=== PATIENT | male | born 1990 | race Caucasian/White ===

== ENCOUNTER 2021-01-15 02:58 | Emergency (ER) | payer OTHER, SELFPAY ==
--- NOTE | ~2021-01-15 | XR_ITS ---
EXAMINATION: XR KNEE, LEFT CLINICAL INFORMATION: Left knee pain. COMPARISON: None TECHNIQUE: Four views of the left knee. FINDINGS: No fracture or malalignment. No joint effusion. Joint spaces are well-preserved. Soft tissues are unremarkable. XR/XR knee LT 4V IMPRESSION: Normal radiographs of the left knee.
[2021-01-15 03:04] VITALS: BP 131/87; PULSE 82; RESP 20; O2SAT 98; BMI 33.9
[2021-01-15] MEDS: Acetaminophen 325 MG TABLET 650 MG PO (03:41)
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
[2021-01-15 04:00] VITALS: BP 140/71; PULSE 80; RESP 16; TEMP 36.9; O2SAT 100
== END 2021-01-15 04:51 | disposition home or self-care (01) ==
PROVIDERS: Emergency Provider Emergency Medicine; PCP Internal Medicine
DX: S80.02XA Contusion of left knee, initial encounter (principal); S80.212A Abrasion, left knee, initial encounter; M25.562 Pain in left knee; W01.0XXA Fall on same level from slipping, tripping and stumbling without subsequent striking against object, initial encounter; Y93.9 Activity, unspecified; Y92.9 Unspecified place or not applicable; Y99.0 Civilian activity done for income or pay
CPT/HCPCS: 73564; 99283; 99284

== ENCOUNTER 2022-09-05 16:15 | Emergency (ER) | payer OTHER, SELFPAY ==
--- NOTE | ~2022-09-05 | XR_ITS ---
EXAMINATION: XR HAND, LEFT CLINICAL INFORMATION: puncture wound to dorsum r/o foreign body COMPARISON: None TECHNIQUE: PA, lateral, and oblique views of the left hand. FINDINGS: The bones and soft tissues are normal. No fracture. Alignment is anatomic. Joint spaces are maintained. No erosions or soft tissue calcifications. No radiodense foreign bodies. XR/XR hand LT 2V IMPRESSION: Normal left hand. No radiodense foreign bodies.
[2022-09-05 16:21] VITALS: BP 141/101; PULSE 111; RESP 18; TEMP 36.9; O2SAT 97; BMI 36.5
--- NOTE | 2022-09-05 16:25 | ECG_ITS ---
Test Reason : TACHY Blood Pressure : / mmHG Vent. Rate : 106 BPM Atrial Rate : 106 BPM P-R Int : 158 ms QRS Dur : 094 ms QT Int : 332 ms P-R-T Axes : 032 014 010 degrees QTc Int : 441 ms Sinus tachycardia RSR' or QR pattern in V1 suggests right ventricular conduction delay Otherwise normal ECG When compared with ECG of 05-SEP-2010 22:45, Vent. rate has increased BY 41 BPM Referred By: Renée Linares Electronically Signed By:JUVE FERNANDES MD
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
[2022-09-05] MEDS: cephALEXin 500 MG CAPSULE PO (16:48)
[2022-09-05] MEDS: Diphth,Pertus(ACell),Tet Adult 0.5 ML SYRINGE IM (16:48)
[2022-09-05 18:00] VITALS: BP 150/95; PULSE 103; RESP 16; TEMP 37; O2SAT 97
== END 2022-09-05 19:29 | disposition home or self-care (01) ==
PROVIDERS: Emergency Provider Emergency Medicine; PCP Internal Medicine
DX: S61.432A Puncture wound without foreign body of left hand, initial encounter (principal); Y35.831A Legal intervention involving a conducted energy device, law enforcement official injured, initial encounter; Y93.02 Activity, running; Y92.414 Local residential or business street as the place of occurrence of the external cause; Y99.0 Civilian activity done for income or pay
CPT/HCPCS: 73120; 90471; 90715; 93005; 99284

== ENCOUNTER → 2022-09-06 12:55 | Outpatient (BNVA) | payer OTHER, SELFPAY | PROVIDERS: PCP Internal Medicine; Visit Provider Physician Assistant | DX: S61.432A Puncture wound without foreign body of left hand, initial encounter (principal); W20.8XXA Other cause of strike by thrown, projected or falling object, initial encounter | CPT/HCPCS: 99204 ==

== ENCOUNTER → 2022-09-08 13:18 | Outpatient (BNVA) | payer OTHER, SELFPAY | PROVIDERS: PCP Internal Medicine; Visit Provider Physician Assistant | DX: S61.432A Puncture wound without foreign body of left hand, initial encounter (principal); W20.8XXA Other cause of strike by thrown, projected or falling object, initial encounter | CPT/HCPCS: 99214 ==

== ENCOUNTER → 2022-09-15 09:33 | Outpatient (BNVA) | payer OTHER, SELFPAY | PROVIDERS: PCP Internal Medicine; Visit Provider Physician Assistant | DX: S61.432A Puncture wound without foreign body of left hand, initial encounter (principal); W20.8XXA Other cause of strike by thrown, projected or falling object, initial encounter | CPT/HCPCS: 99213 ==

== ENCOUNTER 2022-09-25 11:00 | Outpatient (RCR) | payer OTHER, SELFPAY ==
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
--- NOTE | 2022-09-25 11:48 | MHC.OT.DC ---
[address] [phone] F: [phone] Occupational Therapy Discharge Note Provider: Ritika Monzon Diagnosis: Dorsal edema left hand , (tazed in hand) Date of Surgery: Date of Evaluation: 09/14/22 Date of Discharge: 09/25/22 Treatments to Date: 4 Cancellations to Date: 0 No Shows to Date: 0 Discharge Status: Achieved Goals Improved Function Independent with HEP Discharge Summary: Goals met. Pt reports pain and strength significantly improved, WFL. Pain 2/10 . 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 I anticipate pt to RTW and gym workout at work with little difficulty due to discomfort. Electronically Signed By: Lisa Sandoval OT CHT CLT Reviewed/agree with student documentation: Therapist: Please Sign and return to therapist, thank you for your referral.
== END 2022-09-25 11:48 | disposition home or self-care (01) ==
LOC: HO.OT 11:00
PROVIDERS: PCP Internal Medicine; Visit Provider Physician Assistant
DX: R60.0 Localized edema (principal)
CPT/HCPCS: 97110; 97165

== ENCOUNTER → 2022-09-27 11:06 | Outpatient (BNVA) | payer OTHER, SELFPAY | PROVIDERS: PCP Internal Medicine; Visit Provider Physician Assistant | DX: S61.432A Puncture wound without foreign body of left hand, initial encounter (principal); W20.8XXA Other cause of strike by thrown, projected or falling object, initial encounter | CPT/HCPCS: 99213 ==

== ENCOUNTER → 2022-09-28 13:52 | Outpatient (BNVA) | payer OTHER, SELFPAY | PROVIDERS: PCP Internal Medicine; Visit Provider Orthopaedic Surgery | DX: R29.898 Other symptoms and signs involving the musculoskeletal system (principal) | CPT/HCPCS: 99202 ==

== ENCOUNTER → 2023-12-24 12:10 | Outpatient (BNVA) | payer OTHER, SELFPAY | PROVIDERS: PCP Internal Medicine; Visit Provider Physician Assistant Medical ==

== ENCOUNTER 2023-12-24 12:24 | Emergency (ER) | payer OTHER, SELFPAY ==
--- NOTE | ~2023-12-24 | CT_ITS ---
EXAMINATION: CT HEAD WITHOUT CONTRAST CLINICAL INFORMATION: Hypertension. COMPARISON: None. TECHNIQUE: Contiguous axial imaging was performed from the skullbase to vertex without intravenous administration of contrast. This CT examination was performed using dose optimization techniques as appropriate, variously including the following: *Automated exposure control *Adjustment of mA and/or kV according to patient size (this includes techniques or standardized protocols for targeted exams where dose is matched to indication/reason for exam; i.e. extremities or head) *Use of iterative reconstruction technique DLP: 684 mGy-cm. FINDINGS: There is no evidence of acute intracranial hemorrhage or territorial infarction. No abnormal mass effect or midline shift is seen. Miller to white matter differentiation is well preserved. No extra-axial fluid collections are identified. The ventricles are normal in size. There is no abnormal attenuation within the brain parenchyma. The osseous structures and soft tissues are normal. The mastoid air cells and visualized portions of the paranasal sinuses are well aerated. CT/CT head/brain wo IV con IMPRESSION: No acute intracranial pathology.
--- NOTE | 2023-12-24 12:24 | ECG_ITS ---
Test Reason : HYPERTENSION Blood Pressure : / mmHG Vent. Rate : 109 BPM Atrial Rate : 109 BPM P-R Int : 138 ms QRS Dur : 084 ms QT Int : 336 ms P-R-T Axes : 030 007 002 degrees QTc Int : 452 ms Sinus tachycardia Possible Anterior infarct (cited on or before 24-DEC-2023) Abnormal ECG When compared with ECG of 05-SEP-2022 16:35, No significant change was found Referred By: Ann Walter Electronically Signed By:CARLYN ALCANTAR
--- NOTE | 2023-12-24 12:24 | ED_ITS ---
HPI - General Adult General Chief complaint: General Medical Stated complaint: High Blood Pressure Time Seen by Provider: 12/24/23 13:06 Source: patient Mode of arrival: ambulatory Limitations: no limitations History of Present Illness HPI narrative: Patient is a 33 year old assigned male at with no reported medical history presenting to the emergency department today with concerns of high blood pressure and intermittent headaches. Patient states that he has been having intermittent headaches lately and when having them, he checks his blood pressure and it is elevated. Patient states that while he was at work today he had another headache, checked his blood pressure, it was elevated, and he was told to come here. Patient denies any current headache, dizziness, lightheadedness, abdominal pain, nausea, vomiting, fever, chills, blurry vision, double vision, loss of vision, chest pain, difficulty breathing, shortness of breath, back pain, night sweats, pain with urination, increased urinary frequency, increased urinary urgency, blood in his urine or stool, syncope or a near syncopal episode, recent trauma or falls, bowel incontinence, bladder incontinence, bowel retention, bladder retention, or any other complaints at this time. Onset (ago): week(s) Location: head Radiation: non-radiation Severity: mild Severity scale (1-10): 3 Quality: aching Pain Consistency: intermittent Relieving factors: none Exacerbating factors: none Associated symptoms: headaches (intermittently) Related Data Previous Rx's Medication Instructions Recorded lisinopril 5 mg tablet 5 mg PO DAILY #90 tabs 12/24/23 Allergies Allergy/AdvReac Type Severity Reaction Status Date / Time amoxicillin [AMOXICILLIN] Allergy Unknown Verified 09/28/22 13:58 Penicillins [PENICILLINS] Allergy Unknown RASH Verified 09/28/22 13:58 sulfamethoxazole Allergy Unknown Verified 09/28/22 13:58 [From BACTRIM] trimethoprim [From BACTRIM] Allergy Unknown Verified 09/28/22 13:58 Review of Systems 2 Constitutional: Constitutional: Reports no additional constitutional complaints, Denies chills, Denies fever(s), Reports headache(s) (intermittently) and Denies night sweats Eyes: Eyes: Reports no additional eye complaints, Denies blurry vision, Denies change in vision, Denies diplopia, Denies eye discharge, Denies loss of vision and Denies eye pain ENT: Denies dizziness and Reports headache(s) (intermittently) Cardiovascular: Cardiovascular: Reports no additional cardiovascular complaints, Denies chest pain, Denies lightheadedness, Denies Loss of Consciousness and Denies dyspnea Respiratory: Respiratory: Reports no additional respiratory complaints and Denies dyspnea Gastrointestinal: Gastrointestinal: Reports no additional gastrointestinal complaints, Denies abdominal pain, Denies melena, Denies hematochezia, Denies change in bowel habits and Denies change in stool character Genitourinary: Genitourinary: Reports no additional male genitourinary complaints, Denies hematuria, Denies oliguria, Denies difficulty urinating, Denies dysuria, Denies urinary frequency, Denies urinary hesitancy, Denies urinary incontinence and Denies urinary urgency Musculoskeletal: Musculoskeletal: Reports no additional musculoskeletal complaints, Denies numbness and Denies tingling Neurologic: Denies dizziness, Reports headache(s) (intermittently), Denies loss of vision, Denies numbness and Denies tingling Psychiatric: Psychiatric: Reports no additional psychiatric complaints Endocrine: Endocrine: Reports no additional endocrine complaints Hematologic/Lymphatic: Hematologic/Lymphatic: Reports no additional hematologic/lymphatic complaints Allergic/Immunologic: Allergic/Immunologic: Reports no additional allergic/immunologic complaints PMFSH Past Medical History Attestation statement: The following information was validated with the patient. 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 Physical Exam ED Vital Signs: Vital Signs - 24 hr 12/24/23 12:26 Temperature 98.3 F Pulse Rate 101 H Respiratory Rate 16 Blood Pressure 163/120 H Pulse Oximetry 98 Oxygen Delivery Method Room Air BMI result Body Mass Index 42.7 Const General: cooperative, no acute distress, alert and awake Nutritional Appearance: well nourished Orientation/consciousness: patient oriented x3 Limitations: no limitations HENMT Head: Yes normal to inspection and Yes atraumatic Ears: hearing grossly normal bilaterally and external ears normal General nose exam: Normal external nose present, no nasal discharge noted and no epistaxis Face and sinus: Yes normal facial exam, No abrasion and No laceration Mouth: Normal oral and palatal mucosa present, no drooling and no muffled voice Eyes General: appearance normal, both eyes and all related structures Periorbital: periorbital findings normal Eyelids: Yes eyelids normal Conjunctivae: conjunctivae normal Pupils: Equal, round and reactive pupils present EOM: EOMs intact bilaterally Neck Neck: Yes normal visual inspection, Yes full ROM and Yes no lymphadenopathy Chest Chest palpation & inspection: normal inspection of the chest Resp Effort & Inspection: normal respiratory effort and able to speak in complete sentences GI Inspection: Yes normal to inspection Neuro General: patient oriented x3 and moves all extremities Cranial nerves: Yes Equal, round and reactive pupils present Cognition (Neuro): normal cognition Motor exam (neuro): 5/5 motor strength present throughout Sensory Exam: Normal double simultaneous stimulation for sensation Coordination: [id number] test normal Extrem General: Yes normal to inspection, Yes full ROM and Yes capillary refill normal Psych Appearance: grossly normal Mental Status: mental status grossly normal Affect: normal affect Attitude: cooperative Thought process: Normal thought process present Thought content: Normal thought content present Insight: Good insight present (Psych) Course Course Course Narrative: RME:33 yo male here w/ head/ neck pressure w/ elevated BP. went to [facility] where his BP was noted to be 164/114 and he was tachycardic- sent here. 182/132 at home yesterday. no hx of HTN, not currently on BP meds. denies chest pain, SOB, vision changes, dizziness. ekg, labs ordered. Full HPI, ROS and PE to be performed by the primary ED provider. Medical Decision Making Medical Decision Making MDM Narrative: Patient is a 33 year old assigned male at with no reported medical history presenting to the emergency department today with intermittent headaches and concern of high blood pressure. Patient's physical exam was unremarkable. Patient's blood work was unremarkable. Patient's EKG was unremarkable. Patient's head CT showed no acute process. I explained my physical exam findings as well as all test results to the patient. I answered all questions asked by the patient. Patient was hypertensive while in the department. Given his intermittent symptoms and elevated blood pressure - will consider starting an anti-hypertensive. The patient and I discussed in depth the benefits vs. risks of starting an anti-hypertensive medication from the emergency department. Together, we decided on lisinopril 5mg. I discussed the possible adverse effects with the patient who verbalized agreement and understanding. I stressed the importance of the patient taking his medication as prescribed. I stressed the importance of the patient following up with his primary care provider. I stressed the importance of the patient returning to the emergency department immediately if his symptoms were to worsen or if he were to develop any dizziness, shortness of breath, difficulty breathing, chest pain, blurry vision, loss of vision, nausea, vomiting, abdominal pain, fever, chills, back pain, or any other complaints. Patient verbalized agreement and understanding with this treatment plan and discharge. Differential Diagnosis Differential Diagnoses: The differential diagnosis associated with the presentation includes Hypertension Headache Cluster headache Tension headache Admission/Observation Consideration of admission/observation: Escalation of care including admission/observation considered Patient would have been admitted to the hospital had his work up had any findings where hospital admission was appropriate and his clinical presentation warranted hospital admission. Lab Data MDM Lab Attestation statement: I reviewed the patient's lab results. My interpretation of these studies and their corresponding values is that they are grossly normal. 12/24/23 12:46 12/24/23 12:46 Labs: Lab Results 12/24/23 Range/Units 12:46 WBC 6.8 (4.8-10.8) X10*3/uL RBC 5.79 (4.60-5.80) X10*6/uL Hgb 17.1 (14.0-18.0) g/dl Hct 47.4 (42.0-52.0) % MCV 81.9 (80.0-98.0) fL MCH 29.5 (27.0-33.0) pg MCHC 36.1 H (31.0-36.0) g/dl RDW 12.3 (11.0-16.0) % Plt Count 225 (160-400) X10*3/uL MPV 11.3 (9.4-12.4) fL Immature Gran % (Auto) 0.4 (0.0-0.4) % Neut % (Auto) 72.4 (45-73) % Lymph % (Auto) 18.5 L (20-40) % Stone % (Auto) 6.2 (2-11) % Eos % (Auto) 1.9 (0-4) % Baso % (Auto) 0.6 (0-2) % Lymph # (Auto) 1.3 (1.2-4.9) X10*3/uL Stone # (Auto) 0.4 (0.1-1.2) X10*3/uL Eos # (Auto) 0.1 (0.0-0.4) X10*3/uL Baso # (Auto) 0.0 (0.0-0.2) X10*3/uL Abs Immat Gran (auto) 0.03 (0.00-0.03) X10*3/uL Absolute Neuts (auto) 4.9 (2.0-8.3) x10*3/uL Absolute Nucleated RBC 0.000 (0.0-0.012) X10*3/uL Nucleated RBC % (auto) 0.0 (0.0-0.2) /100WBC PT 11.5 (11.1-13.3) SEC INR 0.9 (0.9-1.1) Sodium 141 (135-145) mmol/L Potassium 4.1 (3.3-5.1) mmol/L Chloride 105 (96-108) mmol/L Carbon Dioxide 27 (22-29) mmol/L Anion Gap 13 (12-20) BUN 15 (9-16) mg/dL Creatinine 0.94 (0.5-1.4) mg/dL Estim Creat Clear Calc 165.4 Estimated GFR > 60 Random Glucose 102 (60-115) mg/dL Calcium 9.8 (8.4-10.2) mg/dL Magnesium 2.1 (1.6-2.6) mg/dL Troponin I High Sens < 2.7 (<3.5-35.0) ng/L Independent Interpretation I performed an independent interpretation of an: EKG and CT Scan Interpretation: My interpretation is in agreement with the radiologist's impression of this imaging study. - EXAMINATION: CT HEAD WITHOUT CONTRAST CLINICAL INFORMATION: Hypertension. COMPARISON: None. TECHNIQUE: Contiguous axial imaging was performed from the skullbase to vertex without intravenous administration of contrast. This CT examination was performed using dose optimization techniques as appropriate, variously including the following: *Automated exposure control *Adjustment of mA and/or kV according to patient size (this includes techniques or standardized protocols for targeted exams where dose is matched to indication/reason for exam; i.e. extremities or head) *Use of iterative reconstruction technique DLP: 684 mGy-cm. FINDINGS: There is no evidence of acute intracranial hemorrhage or territorial infarction. No abnormal mass effect or midline shift is seen. Miller to white matter differentiation is well preserved. No extra-axial fluid collections are identified. The ventricles are normal in size. There is no abnormal attenuation within the brain parenchyma. The osseous structures and soft tissues are normal. The mastoid air cells and visualized portions of the paranasal sinuses are well aerated. CT/CT head/brain wo IV con IMPRESSION: No acute intracranial pathology. Dictated By: MEERA WELLS MD Signed By: Electronically signed by MEERA WELLS MD 12/24/23 1448 - Vent. Rate: 109 BPM Atrial Rate: 109 BPM P-R Int: 138 ms QRS Dur: 084 ms QT Int: 336 ms P-R-T Axes: 030 007 002 degrees QTc Int: 452 ms Sinus tachycardia Possible Anterior infarct (cited on or before 24-DEC-2023) Abnormal ECG When compared with ECG of 05-SEP-2022 16:35, No significant change was found Electronically Signed By:RODDY ALCANTAR Dictated By: Roddy Alcantar MD Signed By: Electronically signed by Roddy Alcantar MD 12/24/23 0399 Radiology Impression Discussion of test interpretation with radiology: I have reviewed the radiologist's reading. Prescription Management I considered prescription management with: Other (patient started on Lisinopril.) Discharge Plan Discharge Clinical Impression: Hypertension Patient Disposition: Home, Self-Care Instructions: Hypertension (ED) Additional Instructions: I am starting you on Lisinopril. Things to look out for with this medication are a dry cough which is a normal side effect and facial/lip/mouth swelling which is an ABNORMAL side effect and should cause you to immediately stop the medication and come to the ER. Follow up with your primary care provider. Return to the emergency department immediately if your symptoms worsen or if you develop any dizziness, shortness of breath, difficulty breathing, chest pain, blurry vision, loss of vision, nausea, vomiting, abdominal pain, fever, chills, back pain, or any other complaints. Prescriptions: New lisinopril 5 mg tablet 5 mg PO DAILY Qty: 90 0RF Ref[place]: [facility] [place] [facility] [place] (Call to establish and follow up with a primary care provider. If you already have a primary care provider, please follow up with them.) [facility] [place] [facility]] (Call to establish and follow up with a primary care provider. If you already have a primary care provider, please follow up with them.) [facility] [place] [facility]] (Call to establish and follow up with a primary care provider. If you already have a primary care provider, please follow up with them.) [facility] [Provider Group] (Call to establish and follow up with [facility] given you came in while on shift. ) Justo Quintana MD [Primary Care Provider] - Stand Alone Forms: Work/School Release Interventions: ED Discharge Assessment Last Done: 12/24/23 15:35 Discharge Date/Time: 12/24/23 15:36 Print Language: Romanian
[2023-12-24 12:26] VITALS: BP 163/120; PULSE 101; RESP 16; TEMP 36.8; O2SAT 98; BMI 42.7
[2023-12-24 12:57] LABS: MANUAL DIFF FLAG NO
[2023-12-24 12:59] LABS: Basophils Percent Auto 0.6 % (0-2); Eosinophils Absolute Auto 0.1 X10*3/uL (0.0-0.4); Eosinophils Percent Auto 1.9 % (0-4); Hematocrit 47.4 % (42.0-52.0); Hemoglobin 17.1 g/dl (14.0-18.0); Imm Gran Abs Auto 0.03 X10*3/uL (0.00-0.03); Imm Gran Pct Auto 0.4 % (0.0-0.4); Lymphocytes Absolute Auto 1.3 X10*3/uL (1.2-4.9); Lymphocytes Percent Auto 18.5 % (20-40); Mean Corpuscular HGB Conc 36.1 g/dl (31.0-36.0); Mean Corpuscular Hemoglobin 29.5 pg (27.0-33.0); Mean Corpuscular Volume 81.9 fL (80.0-98.0); Mean Platelet Volume 11.3 fL (9.4-12.4); Monocytes Absolute Auto 0.4 X10*3/uL (0.1-1.2); Monocytes Percent Auto 6.2 % (2-11); Neutrophils Absolute Auto 4.9 x10*3/uL (2.0-8.3); Neutrophils Percent Auto 72.4 % (45-73); Platelet Count 225 X10*3/uL (160-400); Red Blood Count 5.79 X10*6/uL (4.60-5.80); Red Cell Distribution Width 12.3 % (11.0-16.0); White Blood Count 6.8 X10*3/uL (4.8-10.8)
[2023-12-24 13:05] LABS: INTERNATIONAL NORM RATIO 0.9 (0.9-1.1); Prothrombin Time 11.5 SEC (11.1-13.3)
[2023-12-24 13:12] LABS: Anion Gap 13 (12-20); Blood Urea Nitrogen 15 mg/dL (9-16); Calcium 9.8 mg/dL (8.4-10.2); Carbon Dioxide 27 mmol/L (22-29); Chloride 105 mmol/L (96-108); Creatinine Clr Calc Pharmacy 165.4; Estimated Glomerular Filt Rate > 60; Glucose Random 102 mg/dL (60-115); Magnesium 2.1 mg/dL (1.6-2.6); Potassium 4.1 mmol/L (3.3-5.1); Sodium 141 mmol/L (135-145)
[2023-12-24 13:20] LABS: Troponin-I High Sensitivity < 2.7 ng/L (<3.5-35.0)
== END 2023-12-24 15:36 | disposition home or self-care (01) ==
PROVIDERS: Physician Assistant Medical; Emergency Provider Emergency Medicine; PCP Internal Medicine
DX: I10 Essential (primary) hypertension (principal); R51.9 Headache, unspecified; Z88.0 Allergy status to penicillin; Z88.2 Allergy status to sulfonamides
CPT/HCPCS: 36415; 70450; 80048; 83735; 84484; 85025; 85610; 93005; 99283; 99284

== ENCOUNTER → 2023-12-24 12:24 | Outpatient (BNV) | payer OTHER, SELFPAY | PROVIDERS: Emergency Provider Emergency Medicine; PCP Internal Medicine; Visit Provider Internal Medicine | DX: R00.0 Tachycardia, unspecified (principal); R94.31 Abnormal electrocardiogram [ECG] [EKG] | CPT/HCPCS: 93010 ==

== ENCOUNTER → 2024-07-25 15:47 | Outpatient (BNVA) | payer OTHER, SELFPAY | PROVIDERS: PCP Internal Medicine; Visit Provider Physician Assistant | DX: S20.211A Contusion of right front wall of thorax, initial encounter (principal); S80.02XA Contusion of left knee, initial encounter; S80.01XA Contusion of right knee, initial encounter; S80.212A Abrasion, left knee, initial encounter; S80.211A Abrasion, right knee, initial encounter; W18.39XA Other fall on same level, initial encounter; Y35.891A Legal intervention involving other specified means, law enforcement official injured, initial encounter | CPT/HCPCS: 71101; 73564; 99204 ==

== ENCOUNTER → 2024-08-01 15:01 | Outpatient (BNVA) | payer OTHER, SELFPAY | PROVIDERS: PCP Internal Medicine; Visit Provider Physician Assistant Medical | DX: S20.211D Contusion of right front wall of thorax, subsequent encounter (principal); S80.02XD Contusion of left knee, subsequent encounter; S80.01XD Contusion of right knee, subsequent encounter; S80.212D Abrasion, left knee, subsequent encounter; S80.211D Abrasion, right knee, subsequent encounter; W18.39XD Other fall on same level, subsequent encounter; Y35.891D Legal intervention involving other specified means, law enforcement official injured, subsequent encounter | CPT/HCPCS: 99213 ==

== ENCOUNTER 2024-08-01 15:42 | Emergency (ER) | payer OTHER, SELFPAY ==
--- NOTE | ~2024-08-01 | CT_ITS ---
EXAMINATION: CT CHEST WITHOUT CONTRAST CLINICAL INFORMATION: Rib injury, dyspnea COMPARISON: Rib x-ray from 07/25/2024 TECHNIQUE: Multidetector volumetric CT imaging of the chest was done. Axial MIP volume rendering provided. Sagittal and coronal reformatted images were obtained. This CT examination was performed using dose optimization techniques as appropriate, variously including the following: *Automated exposure control *Adjustment of mA and/or kV according to patient size (this includes techniques or standardized protocols for targeted exams where dose is matched to indication/reason for exam; i.e. extremities or head) *Use of iterative reconstruction technique DLP: 702 mGy-cm FINDINGS: LUNGS: The lungs are clear with no evidence of inflammation or nodules. Minimal atelectasis in the left lung base. MEDIASTINUM: The mediastinum is normal. Heart is normal in size. Pericardium is normal. No mediastinal hematoma. CORONARY ARTERY CALCIFICATION: None visualized on this study. PLEURA: There is no pleural effusion. No pneumothorax. AXILLA: No lymphadenopathy. UPPER ABDOMEN: Unremarkable. OSSEOUS STRUCTURES: Unremarkable. No acute fractures CT/CT chest wo IV con IMPRESSION: No acute process. No acute fractures. Minimal atelectasis in the left lung base. Electronically signed by: Lan Alexander MD 08/01/2024 07:39 PM EDT
[2024-08-01 15:48] VITALS: BP 195/126; PULSE 120; RESP 18; TEMP 36.4; O2SAT 97; BMI 43.9
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
--- NOTE | 2024-08-01 15:58 | ECG_ITS ---
Test Reason : fall rib pain Blood Pressure : / mmHG Vent. Rate : 106 BPM Atrial Rate : 106 BPM P-R Int : 136 ms QRS Dur : 092 ms QT Int : 344 ms P-R-T Axes : 047 010 007 degrees QTc Int : 456 ms Sinus tachycardia Otherwise normal ECG When compared with ECG of 24-DEC-2023 12:33, No significant change was found Referred By: Inna Rodriguez Electronically Signed By:DIXON FELDMAN
[2024-08-01 16:41] LABS: MANUAL DIFF FLAG NO
[2024-08-01 16:43] LABS: Basophils Absolute Auto 0.1 X10*3/uL (0.0-0.2); Basophils Percent Auto 1.2 % (0-2); Eosinophils Absolute Auto 0.1 X10*3/uL (0.0-0.4); Eosinophils Percent Auto 1.4 % (0-4); Hematocrit 46.7 % (42.0-52.0); Hemoglobin 16.6 g/dl (14.0-18.0); Imm Gran Abs Auto 0.01 X10*3/uL (0.00-0.03); Imm Gran Pct Auto 0.2 % (0.0-0.4); Lymphocytes Absolute Auto 1.3 X10*3/uL (1.2-4.9); Lymphocytes Percent Auto 22.1 % (20-40); Mean Corpuscular HGB Conc 35.5 g/dl (31.0-36.0); Mean Corpuscular Hemoglobin 30.3 pg (27.0-33.0); Mean Corpuscular Volume 85.4 fL (80.0-98.0); Mean Platelet Volume 10.5 fL (9.4-12.4); Monocytes Absolute Auto 0.3 X10*3/uL (0.1-1.2); Neutrophils Absolute Auto 3.9 x10*3/uL (2.0-8.3); Neutrophils Percent Auto 69.1 % (45-73); Platelet Count 202 X10*3/uL (160-400); Red Blood Count 5.47 X10*6/uL (4.60-5.80); Red Cell Distribution Width 12.5 % (11.0-16.0); White Blood Count 5.7 X10*3/uL (4.8-10.8)
[2024-08-01 17:08] LABS: Troponin-I High Sensitivity < 2.7 ng/L (<3.5-35.0)
[2024-08-01 17:23] LABS: Alanine Aminotransferase 41 U/L (0-40); Albumin Level 4.4 g/dL (3.5-5.0); Alkaline Phosphatase 90 U/L (39-117); Anion Gap 14 (12-20); Aspartate Amino Transferase 47 U/L (5-37); Bilirubin Total 0.5 mg/dL (0.0-1.0); Blood Urea Nitrogen 11 mg/dL (9-16); Calcium 9.3 mg/dL (8.4-10.2); Carbon Dioxide 23 mmol/L (22-29); Chloride 106 mmol/L (96-108); Creatinine Clr Calc Pharmacy 148.9; Estimated Glomerular Filt Rate > 60; Glucose Random 94 mg/dL (60-115); Magnesium 1.8 mg/dL (1.6-2.6); Potassium 4.1 mmol/L (3.3-5.1); Sodium 139 mmol/L (135-145); Total Protein 7.7 g/dL (6.5-8.0)
[2024-08-01 18:07] VITALS: BP 195/126
[2024-08-01] MEDS: amLODIPine Besylate 10 MG TABLET PO (18:07)
[2024-08-01] MEDS: Ibuprofen 600 MG TABLET PO (18:08)
[2024-08-01 18:11] VITALS: BP 155/112; PULSE 98; RESP 20; TEMP 36.6; O2SAT 98
[2024-08-01 19:32] VITALS: BP 148/92; PULSE 89; RESP 19; TEMP 36.6; O2SAT 98
[2024-08-01 19:51] VITALS: BP 148/92; PULSE 89; RESP 19; TEMP 36.6; O2SAT 98
== END 2024-08-01 20:03 | disposition home or self-care (01) ==
PROVIDERS: Physician Assistant Medical; Emergency Provider Internal Medicine
DX: S20.211A Contusion of right front wall of thorax, initial encounter (principal); Y35.811A Legal intervention involving manhandling, law enforcement official injured, initial encounter; I10 Essential (primary) hypertension; R06.02 Shortness of breath; Y93.89 Activity, other specified; Y92.9 Unspecified place or not applicable; Y99.0 Civilian activity done for income or pay
CPT/HCPCS: 36415; 71250; 80053; 83735; 84484; 85025; 93005; 94010; 99284

== ENCOUNTER → 2024-08-04 12:36 | Outpatient (BNVA) | payer OTHER, SELFPAY | PROVIDERS: Visit Provider Physician Assistant Medical | DX: S20.211D Contusion of right front wall of thorax, subsequent encounter (principal); S80.02XD Contusion of left knee, subsequent encounter; S80.01XD Contusion of right knee, subsequent encounter; S80.212D Abrasion, left knee, subsequent encounter; S80.211D Abrasion, right knee, subsequent encounter; W18.39XD Other fall on same level, subsequent encounter; Y35.891D Legal intervention involving other specified means, law enforcement official injured, subsequent encounter | CPT/HCPCS: 99213 ==

== ENCOUNTER → 2024-08-14 14:19 | Outpatient (BNVA) | payer OTHER, SELFPAY | PROVIDERS: Visit Provider Physician Assistant | DX: S20.211D Contusion of right front wall of thorax, subsequent encounter (principal); S80.02XD Contusion of left knee, subsequent encounter; S80.01XD Contusion of right knee, subsequent encounter; W18.39XD Other fall on same level, subsequent encounter | CPT/HCPCS: 99213 ==

== ENCOUNTER 2025-02-09 14:58 | Outpatient (AMB) | payer BC, SELFPAY ==
--- NOTE | 2025-02-09 15:13 | A.OFFPC_ITS ---
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 Intake Note: patient is scheduled to establish care with pcp Blackjack Dealer Required: No Allergies amoxicillin [AMOXICILLIN] Allergy (Unknown, Verified 02/09/25 15:22) Penicillins [PENICILLINS] Allergy (Unknown, Verified 02/09/25 15:22) RASH sulfamethoxazole [From BACTRIM] Allergy (Unknown, Verified 02/09/25 15:22) trimethoprim [From BACTRIM] Allergy (Unknown, Verified 02/09/25 15:22) Medication List - Last Reconciled 02/09/25 by Tomás De La Fuente MD amlodipine 5 mg PO DAILY Tobacco use date assessed: 02/09/25 Dental Screening Dental Screen Date: 02/09/25 Did you have a dental visit in the last 12 months?: Yes Did you have a dental problem in the last 6 months where you did not have access to dental care?: No Was dental information given to patient?: No HPI 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 FHx: Mom: HTN, MS, CAD, Melanoma. Dad: HTN, Skin CA. 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 Smoked x 2 yrs as teen. Nicotine pouches. EtOH3-4 x a week 3-4 drinks of vodka. No drugs. [facility] Medical History (Updated 02/09/25 @ 16:07 by Tomás De La Fuente MD) Hypertension Surgical History (Updated 02/09/25 @ 15:18 by RICHARD Moraes) History of appendectomy Family History (Updated 02/09/25 @ 15:21 by RICHARD Moraes) Mother High blood pressure Father High blood pressure Sister High blood pressure Social History Housing: House Alcohol intake: current Alcohol intake frequency: holidays/special occasions only Patient Tobacco Use Status: Former Tobacco user e-Cigarette/Vaping Use: Never Used Second Hand Smoke Exposure: No service: No Current occupational status: employed 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 1. Little interest or pleasure in doing things: not at all 2. Feeling down, depressed, or hopeless: not at all 3. Trouble falling or staying asleep, or sleeping too much: not at all 4. Feeling tired or having little energy: not at all 5. Poor appetite or overeating: not at all 6. Feeling bad about yourself - or that you are a failure or have let yourself or your family down: not at all 7. Trouble concentrating on things, such as reading the newspaper or watching television: not at all 8. Moving or speaking so slowly that other people could have noticed. Or the opposite - being so fidgety or restless that you have been moving around a lot more than usual: not at all 9. Thoughts that you would be better off or of hurting yourself in some way: not at all Total score: 0 Depression Screening Interpretation: Negative Depression Screening Done: Yes 53445 - PHQ-9 Billing: Yes Source: Developed by Drs. Alfredo Mukherjee, Hannah Pascual, Foreign Mora and colleagues, with an educational alyce from [employer]. Thrive Questionnaire Date Thrive assessed: 02/09/25 I am a: Patient What is your living situation today?: I have a steady place to live Within the past 12 months, did the food you bought not last and you didn't have the money to get more?: Never true Within the past 12 months, did you worry whether your food would run out before you got money to buy more?: Never true Do you have trouble paying for medicines?: No Do you have trouble getting transportation to medical appointments?: No Do you have trouble paying your heating and electricity bill?: No Do you have trouble taking care of your child, family member or friend?: No Do you have trouble with day-to-day activities such as bathing, preparing meals, shopping, managing finances, etc.?: No Are you currently unemployed and looking for a job?: No Are you interested in more education?: No Please select the resources that you would like help with: None Currently or been in a relationship where the following occur: No concerns reported THRIVE Score: 0 AUDIT C Alcohol Use Questionnaire (AUDIT-C) 1. How often do you have a drink containing alcohol?: 2-3 times a week 2. How many drinks containing alcohol do you have on a typical day when you are drinking?: 3 or 4 3. How often do you have six or more drinks on one occasion?: Less than monthly Total Score: 5 Score Reviewed/Action Taken: Yes ROBERT-7 AMB Questionnaire ROBERT-7 Date ROBERT - 7 assessed: 02/09/25 Feeling nervous, anxious, or on edge: 0 = Not at all Not being able to stop or control worryin = Not at all Worrying too much about different things: 0 = Not at all Trouble relaxin = Not at all Being so restless that it is hard to sit still: 0 = Not at all Becoming easily annoyed or irritable: 0 = Not at all Feeling afraid as if something awful might happen: 0 = Not at all Total ROBERT-7 score (0-4 normal; 5-9 mild; 10-14 moderate; 15-21 severe): 0 Source: Developed by Drs. Alfredo Mukherjee, Hannah Pascual, Foreign Mora and colleagues, with an educational alyce from [employer]. ROBERT-7 Assessment Billing ROBERT-7 Assessment Tool: ROBERT-7 Assessment 37604 Review of Systems Const Denies chills, Denies fatigue, Denies fever(s), Denies headache(s) and Denies weakness ENT Denies dizziness and Denies headache(s) Card Denies chest pain, Denies lightheadedness, Denies dyspnea and Denies other (Palpitations) Resp Denies cough, Denies dyspnea, Denies wheezing and Denies other ( shortness of breath) Musc Denies numbness and Denies tingling Neuro Denies dizziness, Denies headache(s), Denies numbness, Denies tingling, Denies paresthesias and Denies weakness Psych Denies anxiety and Denies depression Endo Denies fatigue Aller/Immun Denies wheezing Physical exam (Primary Care) Vital Signs: Last Vital Signs Temp 98.2 F 04/14/25 15:24 Pulse 95 02/09/25 15:24 Resp 16 02/09/25 15:24 BP 140/70 H 02/09/25 15:24 Pulse Ox 99 02/09/25 15:24 Oxygen Delivery Method Room Air 02/09/25 15:24 BMI result Body Mass Index 42.7 Tobacco/Smoking Status: Tobacco use Status Tobacco use date assessed 02/09/25 02/09/25 15:29 Patient Tobacco Use Status Former Tobacco user 02/09/25 15:29 e-Cigarette/Vaping Use Never Used 02/09/25 15:29 PHQ-9: PHQ-9 Score PHQ-9: Total score 0 02/09/25 15:36 Depression Screening Interpretation: Negative Thrive Assessment: Date of Thrive Assessment Date Thrive assessed 02/09/25 02/09/25 15:16 Currently or been in a relationship where the following occur: No concerns reported Const General: no acute distress and well developed Nutritional Appearance: well nourished Orientation/consciousness: patient oriented x3 HENMT Head: Yes normocephalic and Yes atraumatic Eyes General: appearance normal, both eyes and all related structures Pupils: Equal, round and reactive pupils present EOM: EOMs intact bilaterally Resp Effort & Inspection: normal respiratory effort Auscultation: clear to auscultation bilaterally Cardio Rate: regular rate Rhythm: regular rhythm Heart sounds: S1 normal heart sound present, S2 normal heart sound present, no gallops, no murmurs and no rubs Neuro General: patient oriented x3 and gait normal Cranial nerves: Yes Equal, round and reactive pupils present Psych Affect: normal affect Coding Level of Care Code New Pt Level 3 (45394) Diagnoses Hypertension I10 Sleep apnea G47.30 Alcohol use F10.90 Sun-damaged skin L57.8 Family history of melanoma Z80.8 Laboratory exam ordered as part of routine general medical examination Z00.00 Additional Codes ROBERT-7 Assessment Billing - ROBERT-7 Assessment Tool: ROBERT-7 Assessment 67385 ([id number]) PHQ-9 - 77612 - PHQ-9 Billing: Yes ([id number]) Assessment & Plan Assessment & Plan (1) Hypertension: Code(s): I10 - Essential (primary) hypertension Category: Medical Plan: Blood?pressures?are?typically?high?though?fluctuate?between sometimes?normal?and?sometimes?very?high.??Goal?is?less?than?140/90 Continue?amlodipine Will?add?hydrochlorothiazide EKG?today: ?Normal?sinus?rhythm,?normal?axis,?no?hypertrophy,?no?ST-T-wave?changes. Will?check?echocardiogram?as?well (2) Sleep apnea: Code(s): G47.30 - Sleep apnea, unspecified Category: Medical Plan: Apneic?events?at?home Sleep?side Referred?to?Sleep?Medicine Decrease?alcohol?intake (3) Alcohol use: Code(s): F10.90 - Alcohol use, unspecified, uncomplicated Category: Social Hx Plan: Patient advised?to?down?alcohol?intake Offered?referral?but?patient?declined?is?as?stop?this?for?long?periods ?of?time?and?can?so?again (4) Sun-damaged skin: Code(s): L57.8 - Other skin changes due to chronic exposure to nonionizing radiation Category: Medical Plan: Fair?skinned?and?sun?exposure?with?sun?damaged?skin Referred?to?dermatology (5) Family history of melanoma: Code(s): Z80.8 - Family history of malignant neoplasm of other organs or systems Category: Medical Plan: As?above,?sun?damaged?skin?and?patient?has?first- degree?relative?history?of?melanoma Referred?to?dermatology (6) Laboratory exam ordered as part of routine general medical examination: Code(s): Z00.00 - Encounter for general adult medical examination without abnormal fi ndings Category: Medical Plan: Check?labs Orders: Orders Comprehensive [place]. Panel Fast Today Z00.00 - Encounter for general adult medical examination without abnormal findings TSH reflex Free T4 Today Z00.00 - Encounter for general adult medical examination without abnormal findings AMB EKG-In Office Today I10 - Essential (primary) hypertension Complete Blood Count Auto Diff Today Z00.00 - Encounter for general adult medical examination without abnormal findings Lipid Panel Today Z00.00 - Encounter for general adult medical examination without abnormal findings Microalbumin, Random (w Creat) Today I10 - Essential (primary) hypertension, Z00.00 - Encounter for general adult medical examination without abnormal findings UA CC w/rflx Micro + Cult Today Z00.00 - Encounter for general adult medical examination without abnormal findings Hemoglobin A1c Today R73.01 - Impaired fasting glucose, Z00.00 - Encounter for general adult medical examination without abnormal findings Referrals Sleep Medicine Referral G47.30 - Sleep apnea, unspecified Dermatology Referral L57.8 - Other skin changes due to chronic exposure to nonionizing radiation, Z80.8 - Family history of malignant neoplasm of other organs or systems Medications: New hydrochlorothiazide 25 mg PO QAM 90 days 90 tabs 3RF Refilled amlodipine 5 mg PO DAILY 90 tabs 1RF L57.8 - Other skin changes due to chronic exposure to nonionizing radiation
[2025-02-09 15:24] VITALS: BP 140/70; PULSE 95; RESP 16; TEMP 36.8; O2SAT 99; BMI 42.7
--- OUTSIDE RECORDS SUMMARY | 2025-02-09 17:36 | XMS_ITS | Encounter Summary ---
Author Organization [facility] Address [address] [place] [address] Phone Care Team Providers Care Parking Meter Servicer Name Role Phone Viet Rosenbaum MD Primary Care Provider [phone] Encounter Details Date Type Department Care Team (Late st Contact Info) Description 06/14/2017 Conversion Encounter [facility] [place] [address] [place] [address] Social History Tobacco Use Types Packs/Day Years Used Date Smoking Tobacco: Never Assessed Sex and Gender Information Value Date Recorded Sex Assigned at Not on file Legal Sex Male 4:46 PM EDT Gender Identity Not on file Sexual Orientation Not on file documented as of this encounter Plan of Treatment Not on file documented as of this encounter Visit Diagnoses Not on filedocumented in this encounter Care Teams Parking Meter Servicer Relationship Specialty Start Date End Date Viet Rosenbaum MD [address] [place] [address] PCP - General 06/08/17 04/19/23 documented as of this encounter
--- OUTSIDE RECORDS SUMMARY | 2025-02-09 17:36 | XMS_ITS | Encounter Summary ---
Author Organization [facility] Address [address] [place] [address] Phone Care Team Providers Care Senior Software Architect Name Role Phone Viet Rosenbaum MD Primary Care Provider [phone] Encounter Details Date Type Department Care Team (Late st Contact Info) Description 09/01/2011 Documentation [facility] [place] [facility] [address] [place] [address] Family Medicine, Physician [address] [place], [place] [id number] Social History Tobacco Use Types Packs/Day Years [...] on filedocumented in this encounter Care Teams Senior Software Architect Relationship Specialty Start Date End Date Viet Rosenbaum MD [address] [facility] [place] [address] PCP - General 06/08/17 04/19/23 documented as of this encounter
--- OUTSIDE RECORDS SUMMARY | 2025-02-09 17:36 | XMS_ITS | Clinical Summary ---
Author Organization [facility] Address [address] [place] [id number] Phone Care Team Providers Care Member Service Specialist Name Role Phone Unavailable Primary Care Provider Unavailabl e Immunizations Immunization Administration Dates Next Due DTP 05/30/1996, 3,1991,09/22,1991 Hep B, ped/adol 01/02/2003,07/30/2002,06/24/2002 Hib (PRP-T) 09/10/1992, 2,1991,07/18 Influenza, injectable, trivalent 08/05/2009 MMR 06/26/1996,09/10/1992 Meningococcal Conj (Menactra) MCV4P 09/24/2007 OPV 11/23/1992, 2,1991,07/18 Td (adult) (MBL), 2 Lf tetan us toxoid, PF, adsorbed 01/02/2003 Tdap 12/31/2008 Varicella 12/31/2008,07/10/1996 Family History Relation Name Status Comments Maternal Grandfather Alive Materna l grandfather: [place] Maternal Grandmother Alive Materna l grandmother: [place] Social History Tobacco Use Types Packs/Day Years Used Date Smoking Tobacco: Never Assessed Sex and Gender Information Value Date Recorded Sex Assigned at Not on file Legal Sex Male 4:46 PM EDT Gender Identity Not on file Sexual Orientation Not on file Last Filed Vital Signs Vital Sign Reading Time Taken Comments Blood Pressure - - Pulse - - Temperature 36.7 ??C (98 ??F) 03/21/2012 12:00 AM EDT Respiratory Rate - - Oxygen Saturation - - Inhaled Oxygen Concentration - - Weight 103 kg (226 lb 8 oz) 03/21/2012 12:00 AM EDT Height - - Body Mass Index - - Plan of Treatment Health Maintenance Due Date Last Done Comments Varicella Vaccines (2 of 2 - 13+ 2-dose series) 01/28/2009 12/31/2008, 07/10/1996 DTaP,Tdap,and Td Vaccines (7 - Td or Tdap) 12/31/2018 12/31/2008, 01/02/2003, 05/30/1996, Additional history exists Influenza Vaccines (#1) 2024 08/05/2009 COVID-19 Vaccine (2023- season) 2024 HIB Vaccines Completed 09/10/1992, 10/30, 1991, Additional history exists IPV Vaccines Completed 11/23/1992, 10/30, 1991, Additional history exists MMR Vaccines Completed 06/26/1996, 09/10/1992 Hepatitis B Vaccines Completed 01/02/2003, 07/30/2002, 06/24/2002 Meningococcal Vaccine Completed 09/24/2007 HPV Vaccines Aged Out No longer eligi ble based on patient's age to complete this topic Hepatitis A Vaccines Aged Out No long er eligible based on patient's age to complete this topic Men B Vaccine Aged Out No longer elig ible based on patient's age to complete this topic Pneumococcal Vaccine Aged Out No long er eligible based on patient's age to complete this topic
== END 2025-02-09 16:05 | disposition home or self-care (01) ==
LOC: HO.HMCFM 14:58
PROVIDERS: PCP Family Medicine; Visit Provider Family Medicine
DX: I10 Essential (primary) hypertension (principal); G47.30 Sleep apnea, unspecified; F10.90 Alcohol use, unspecified, uncomplicated; L57.8 Other skin changes due to chronic exposure to nonionizing radiation; Z80.8 Family history of malignant neoplasm of other organs or systems; Z00.00 Encounter for general adult medical examination without abnormal findings

== ENCOUNTER → 2025-02-09 14:58 | Outpatient (BNVA) | payer BC, SELFPAY | PROVIDERS: PCP Family Medicine; Visit Provider Family Medicine | DX: Z00.00 Encounter for general adult medical examination without abnormal findings (principal); I10 Essential (primary) hypertension; G47.30 Sleep apnea, unspecified; F10.90 Alcohol use, unspecified, uncomplicated; L57.8 Other skin changes due to chronic exposure to nonionizing radiation; Z79.899 Other long term (current) drug therapy; Z80.8 Family history of malignant neoplasm of other organs or systems | CPT/HCPCS: 96127 ==